=== PATIENT | male | born 1990 | race Caucasian/White ===

== ENCOUNTER 2016-12-30 13:09 | Outpatient (CLI) ==
[2014-10-25 20:01] VITALS: BMI 38.5
[2016-12-30 13:16] LABS: BASOPHILS # (AUTO) 0.1 K/uL (0-0.2); BASOPHILS % (AUTO) 0.9 % (0.0-3.0); EOSINOPHILS # (AUTO) 0.2 K/ul (0.0-0.7); EOSINOPHILS % (AUTO) 2.6 % (0.0-7.0); HEMATOCRIT 47.2 % (42.0-52.0); HEMOGLOBIN 16.8 g/dl (14.0-18.0); IMMATURE GRANULOCYTE % (AUTO) 0.4 % (0.0-5.0); LYMPHOCYTES % (AUTO) 23.6 (10.0-50.0); MEAN CORPUSCULAR HEMOGLOBIN 30.1 pg (27.0-31.0); MEAN CORPUSCULAR HGB CONC 35.6 (31.8-35.4); MEAN CORPUSCULAR VOLUME 84.6 fl (80.0-94.0); MONOCYTES # (AUTO) 0.7 K/uL (0.4-2.0); MONOCYTES % (AUTO) 8.3 (0-10); NEUTROPHILS # (AUTO) 5.5 K/ul (2.0-6.9); NEUTROPHILS % (AUTO) 64.2; PLATELET COUNT 207 10^3/uL (140-440); RED BLOOD COUNT 5.58 10^6/ul (4.70-6.10); WHITE BLOOD COUNT 8.53 K/ul (4.2-10.2)
[2016-12-30 15:20] LABS: ALBUMIN/GLOBULIN RATIO 1.29; ANION GAP 13.9; BILIRUBIN,TOTAL 0.58 mg/dL (0.00-1.20); BUN/CREATININE RATIO 15.66; CALCIUM 9.5 mg/dL (8.2-10.2); CREATININE 0.83 mg/dL (0.60-1.10); POTASSIUM 3.9 mmol/L (3.5-5.1); TOTAL PROTEIN 7.1 g/dL (6.4-8.2)
== END 2016-12-30 13:10 | disposition home or self-care (01) ==
LOC: LAB 13:09
PROVIDERS: ATTEND Emergency Medicine
DX: E11.9 Type 2 diabetes mellitus without complications (principal); E78.5 Hyperlipidemia, unspecified; I10 Essential (primary) hypertension
CPT/HCPCS: 36415; 80053; 80061; 83036; 84443; 85025

== ENCOUNTER 2017-03-12 09:40 | Outpatient (CLI) ==
[2014-10-25 20:01] VITALS: BMI 38.5
--- NOTE | 2017-03-12 09:59 | DI ---
EXAM: Third and fourth digits of the left hand three views HISTORY: Injury, pain FINDINGS: Bone and joint structures appear normal. There is no displaced fracture or joint dislocat ion seen. General bone density and soft tissues are within normal limits. IMPRESSION: Findings within normal limits.
== END 2017-03-12 09:41 | disposition home or self-care (01) ==
LOC: RAD 09:40
PROVIDERS: ATTEND Nurse Practitioner Family
DX: S66.912A Strain of unspecified muscle, fascia and tendon at wrist and hand level, left hand, initial encounter (principal)